=== PATIENT | female | born 1950 | race Caucasian/White ===

== ENCOUNTER → 2016-11-03 | Outpatient (CLI) | payer OTHER | LOC: FIMAGING 10:26 | DX: Z12.31 Encounter for screening mammogram for malignant neoplasm of breast (principal) | CPT/HCPCS: G0202 ==

== ENCOUNTER 2017-07-11 15:20 | Emergency (ER) | payer OTHER ==
[2017-07-11] MEDS ORDERED: FLUORESCEIN SODIUM 1 MG STRIP OP ONE (15:39)
[2017-07-11] MEDS ORDERED: PROPARACAINE 0.5% 15 ML OPHT DROP ONE (15:39)
--- NOTE | 2017-07-11 16:06 | EDPHY ---
General Narrative: CHIEF COMPLAINT: Possible shingles HISTORY OF PRESENT ILLNESS: Patient complains of possible right eye infection with shingles. She said that she felt some abnormality of the right eye thinking it was a stye approximately a week ago per she did not think much of this and waited. She started to notice a difference in the sensation of her forehead and just above the right eyebrow yesterday. She went to a [facility] urgent care earlier today. They diagnosed her with shingles, prescribed her Valtrex 1000 mg every 8 hours, and they recommended she come to the emergency department for slit-lamp examination. She has had no headache. She has no blurred vision. No eye pain but does have pain of the right upper eyelid. No nausea or vomiting. No chest pain or shortness of breath. No cough. No neck pain or stiffness. No other associated complaints or modifying factors. REVIEW OF SYSTEMS: Ten systems reviewed and are negative unless otherwise noted in the HPI PCP: Imani Allred SPECIALISTS: None PAST MEDICAL HISTORY: Herpes genital, hypertension, dyslipidemia PAST SURGICAL HISTORY: , right elbow surgery, appendectomy SOCIAL HISTORY: Nonsmoker. Works as a psychologist locally. FAMILY HISTORY: Noncontributory EXAMINATION General Appearance: Alert, no distress Head: normocephalic, atraumatic. Rash as noted below. Eyes: Pupils equal and round, no conjunctival pallor or injection. EOMs intact. Painless EOMs Slit-lamp exam: No uptake of the dye. No branching or dendritic lesions. ENT, Mouth: Mucous membranes moist. Airway patent. No vesicles in the right EAC or in the preauricular skin. Right TM clear. Neck: Normal inspection, supple, non-tender. Respiratory: Lungs are clear to auscultation. No wheezing, rhonchi or crackles Cardiovascular: Regular rate and rhythm.No murmur Neurological: A&O, nonfocal, normal gait Skin: Warm and dry. Plaque type urticarial rash to the forehead just above the nose. Some erythema to this. Does not cross midline. No visualized vesicles. No vesicles in the preauricular skin of the ear or in the right EAC Extremities: Nontender, no pedal edema Psychiatric: Mood and affect normal DIFFERENTIAL DIAGNOSES: Including but not limited to herpes zoster, herpes zoster ophthalmicus, stye, eyelid cellulitis MDM: 3:55 p.m. Likely zoster of the right forehead and blepharitis of the right upper eyelid. Proceed with some slit-lamp examination. 4:05 p.m. Herpes zoster involving the forehead and eyelid. Case discussed with Dr. Bower. No involvement of the right ear or preauricular region. There is no involvement of the conjunctiva by slit lamp examination. Treatment was started today with 1000 mg every 8 hours for 7 days prescribed. She does have this prescription should continue to take this poorly. Recommend she contact her primary care physician tomorrow. Recommend she contact Ophthalmology for outpatient follow-up tomorrow. ED precautions for any worsening symptoms, headache, fever, eye pain, blurred vision. She is comfortable this plan and discharged in stable condition. - History Smoking Status: Former smoker - Objective Vital Signs: Initial Vital Signs Temperature (C) 98.1 F 07/11/17 15:24 Heart Rate 79 07/11/17 15:24 Respiratory Rate 16 07/11/17 15:24 Blood Pressure 161/94 H 07/11/17 15:24 O2 Sat (%) 96 07/11/17 15:24 O2 Delivery Mode Room Air Allergies/Adverse Reactions: Penicillins Allergy (Mild, Verified 07/11/17 15:30) Rash Sulfa (Sulfonamide Antibiotics) Allergy (Mild, Verified 07/11/17 15:30) Hives Home Medications: Medication Instructions Recorded Acyclovir [Zovirax 400 mg (*)] 400 mg PO BID 07/11/17 Lisinopril [Zestril 40 mg (*)] 40 mg PO 07/11/17 Rosuvastatin Calcium [Crestor 40mg 40 mg PO 07/11/17 (*)] valACYclovir [Valtrex (*)] 500 mg PO 07/11/17 Departure - Departure Disposition: Home, Routine, Self-Care Clinical Impression: Herpes zoster blepharitis Condition: Good Instructions: Shingles (ED) Additional Instructions: 1. Continue your previous prescription of Valtrex to completion 2. Contact her primary care physician tomorrow for follow-up this week 3. Contact Ophthalmology for outpatient follow-up this week, information provided 4. ED precautions as discussed Referrals: Ashlie Pina PA [Primary Care Provider] - As per Instructions Rodrigo Gtz MD [Medical Doctor] - As per Instructions Stand Alone Forms: Airline Excuse
[2017-07-11 16:17] VITALS: BP 151/95; PULSE 73; RESP 18; TEMP 97.7; O2SAT 95
== END 2017-07-11 16:17 | disposition home or self-care (01) ==
DX: H01.001 Unspecified blepharitis right upper eyelid (principal); B02.39 Other herpes zoster eye disease; I10 Essential (primary) hypertension; Z87.891 Personal history of nicotine dependence

== ENCOUNTER → 2017-08-28 | Outpatient (CLI) | payer OTHER | LOC: FIMAGING 09:18 | PROVIDERS: ATTEND Internal Medicine Rheumatology | DX: Z13.820 Encounter for screening for osteoporosis (principal); Z78.0 Asymptomatic menopausal state; M81.0 Age-related osteoporosis without current pathological fracture ==

== ENCOUNTER → 2017-11-09 | Outpatient (CLI) | payer OTHER | LOC: FIMAGING 10:12 | PROVIDERS: ATTEND Physician Assistant | DX: Z12.31 Encounter for screening mammogram for malignant neoplasm of breast (principal) ==

== ENCOUNTER → 2018-12-16 | Outpatient (CLI) | payer OTHER | LOC: FIMAGING 07:33 | PROVIDERS: ATTEND Physician Assistant | DX: Z12.31 Encounter for screening mammogram for malignant neoplasm of breast (principal) ==